=== PATIENT | female | born 1955 | race Caucasian/White ===

== ENCOUNTER → 2021-04-14 | Outpatient (CLI) | payer MEDICARE, BC | LOC: LAB SHORT 08:37 → LAB 08:37 | DX: N39.0 Urinary tract infection, site not specified (principal) | CPT/HCPCS: 87077; 87086; 87186 ==

== ENCOUNTER 2023-04-12 15:48 | Emergency (ER) | payer MEDICARE, BC ==
[~2023-04-12] VITALS: Ht 170.2 cm; Wt 90.7 kg
[2023-04-12] MEDS ORDERED: Vitamin D1000 UNI1 PO (18:25)
[2023-04-12] MEDS ORDERED: ANASTROZOLE1 M7 PO (18:25)
[2023-04-12 18:58] VITALS: BP 137/84
== END 2023-04-12 19:14 | disposition home or self-care (01) ==
LOC: ER 15:48
DX: S01.01XA Laceration without foreign body of scalp, initial encounter (principal); W11.XXXA Fall on and from ladder, initial encounter
CPT/HCPCS: 12002; 70450; 72125; 90471; 90714; 90715; 96374-59; 99283-25; A9270; J1885